=== PATIENT | female | born 1965 | race Caucasian/White ===

== ENCOUNTER 2016-12-29 07:47 | Emergency (ER) | payer BC ==
[~2016-12-29] VITALS: Ht 170.2 cm; Wt 101.1 kg
[~2016-12-29 07:47] MED LIST: AMLO5TAB2 PO; BUTA1CAP PO; ESCI20TA30 PO; OMEP20CA10 PO; PROP20TA7 PO
[2016-12-29 07:50] VITALS: Ht 170.2 cm; Wt 101.1 kg
--- OUTSIDE RECORDS SUMMARY | 2016-12-29 07:51 | XMS REPORT | Referral Summary ---
Author Author [facility] Organization [facility] Address Unknown Phone Unavailable Care Team Providers Care Lead Mason Tender Name Role Phone Norbert Skinner Primary Care Physician [phone] Encounter Date(s): 11/16/15 - 11/16/[address] [facility] [address] [place] [id number] Discharge Diagnosis: Major depressive disorder Discharge Diagnosis: Seasonal allergic rhinitis Discharge Disposition: 01-Home or Self Care Attending Physician: Norbert Skinner DO Admitting Physician: Norbert Skinner DO Vital Signs Most recent to 1 oldest [Reference Range]: Temperature Tympanic 36.5 degC [36.6-38.1 degC] *LOW* (11/16/15 1:08 PM) Peripheral Pulse 76 bpm Rate [60-100 bpm] (11/16/15 1:08 PM) Blood Pressure 131/78 mmHg [90-140/60-90 mmHg] (11/16/15 1:08 PM) Problem List Condition Effective Dates Status Health Status Informant Obesity(Confirmed) Active patient Tobacco Active patient user(Confirmed) Allergies, Adverse Reactions, Alerts No Known Medication Allergies Medications Lexapro 20 mg oral tablet 20 mg 1 tabs, Oral, Daily, # 30 tabs, 6 Refill(s), Pharmacy: [facility] [id number], 1 tabs Oral Daily Start Date: 10/05/15 Status: Ordered Norvasc 5 mg oral tablet 5 mg 1 tabs, Oral, Daily, # 30 tabs, 0 Refill(s), Pharmacy: [id number], 1 tabs Oral Daily Start Date: 10/26/15 Status: Ordered Results No data available for this section Immunizations Vaccine Date Refusal Reason influenza virus vaccine, inactivated 09/04/15 Procedures No data available for this section Social History Social History Type Response Smoking Status Current some day smoker; Type: Cigarettes; Number of years: 20 Assessment and Plan Extracted from: Title: Office Visit Note Author: Susanne Norbert TA Date: 11/16/15 Assessment/Plan HTN (hypertension) 1. Blood pressure is well controlled at this time. 2. Continue with low-salt diet. 3. Continue with weight loss effort. 4. Follow-up in 3 months for blood pressure management. Major depressive disorder 1. Continue with Lexapro daily. 2. Follow-up in 3 months for further management. Ordered: Office Visit Level 3 Est 88135 Seasonal allergic rhinitis 1. Consider the use of Flonase and nasal rinses twice a day until symptoms improve. 2. If no improvement then we may consider sending her to ENT specialist. Ordered: Office Visit Level 3 Est 69530
--- OUTSIDE RECORDS SUMMARY | 2016-12-29 07:51 | XMS REPORT | Referral Summary ---
Author Author [facility] Organization [facility], [facility] Address Unknown Phone Unavailable Care Team Providers Care Windows Admin Name Role Phone Norbert Skinner Primary Care Physician [phone] Encounter VC Date(s): 04/25/16 - 04/25/[address] [facility], [address] [place] [address] [place] Discharge Disposition: 01-Home or Self Care Attending Physician: Norbert Skinner DO Admitting Physician: Norbert Skinner DO Vital Signs Most recent to 1 oldest [Reference Range]: Temperature Tympanic 37.0 degC [36.6-38.1 degC] (04/25/16 11:08 AM) Peripheral Pulse 70 bpm Rate [60-100 bpm] (04/25/16 11:08 AM) Respiratory Rate 18 br/min [14-20 br/min] (04/25/16 11:08 AM) Blood Pressure 122/90 mmHg [90-140/60-90 mmHg] (04/25/16 11:08 AM) SpO2 98 % (04/25/16 11:08 AM) Problem List Condition Effective Dates Status Health Status Informant Obesity(Confirmed) Active patient Tobacco Active patient user(Confirmed) Allergies, Adverse Reactions, Alerts No Known Medication Allergies Medications amLODIPine 5 mg oral tablet See Instructions, TAKE 1 TABLET BY MOUTH EVERY DAY, # 30 tabs, 5 Refill(s), eRx : [facility] , TAKE 1 TABLET BY MOUTH EVERY DAY Start Date: 01/17/16 Status: Ordered ESCITALOPRAM 20MG TABLETS See Instructions, TAKE 1 TABLET BY MOUTH EVERY DAY, # 30 tabs, 2 Refill(s), eRx : [facility] , TAKE 1 TABLET BY MOUTH EVERY DAY Start Date: 04/24/16 Status: Ordered Fioricet with Codeine oral capsule 1 caps, Oral, q6hr, as needed for headache, # 30 caps, 0 Refill(s) Start Date: 04/25/16 Stop Date: 05/26/16 Status: Ordered Lexapro 20 mg oral tablet 20 mg 1 tabs, Oral, Daily, # 30 tabs, 6 Refill(s), Pharmacy: [facility] [id number], 1 tabs Oral Daily Start Date: 10/05/15 Status: Ordered propranolol 20 mg oral tablet 20 mg 1 tabs, Oral, BID, # 180 tabs, 0 Refill(s), Pharmacy: [facility] [id number], 1 tabs Oral BID Start Date: 04/25/16 Status: Ordered Results Chemistry Most recent to 1 oldest [Reference Range]: Estimated Creatinine 83.52 mL/min Clearance (04/25/16 11:09 AM) Immunizations Vaccine Date Refusal Reason influenza virus vaccine, inactivated 09/04/15 Procedures No data available for this section Social History Social History Type Response Smoking Status Former smoker; Type: Cigarettes; Number of years: 20 Assessment and Plan Extracted from: Title: Office Visit Note Author: Norbert Skinner DO Date: 04/25/16 Assessment/Plan Migraine 1. Her history and clinical finding concerning for worsening migraines. 2. Propranolol 20 mg twice a day. 3. Fioricet one tablet every 6 hours as needed for breakthrough migraines. 4. We will set her up for MRI of the head for further evaluation since she is waking up with the migraines and they seem intractable with worsening presentation as compared to her baseline. Ordered: Office Visit Level 4 Est 56171 Orders: butalbital/acetaminophen/caffeine/codeine, 1 caps, Oral, q6hr, as needed for headache, # 30 caps, 0 Refill(s) propranolol, 20 mg 1 tabs, Oral, BID, # 180 tabs, 0 Refill(s), Pharmacy: [facility] [id number], 1 tabs Oral BID
--- OUTSIDE RECORDS SUMMARY | 2016-12-29 07:51 | XMS REPORT | Referral Summary ---
Author Author [facility] Organization [facility] Address Unknown Phone Unavailable Care Team Providers Care Shock Absorber Installer Name Role Phone Norbert Skinner Primary Care Physician [phone] Encounter VC Date(s): 10/26/15 - 10/26/[address] [facility], Family [address] [place] [address]- Discharge Disposition: 01-Home or Self Care Attending Physician: Norbert Skinner DO Admitting Physician: Norbert Skinner DO Vital Signs Most recent to 1 oldest [Reference Range]: Temperature Tympanic 36.7 degC [36.6-38.1 degC] (10/26/15 9:08 AM) Peripheral Pulse 65 bpm Rate [60-100 bpm] (10/26/15 9:08 AM) Blood Pressure 142/95 mmHg [90-140/60-90 mmHg] *HI* (10/26/15 9:08 AM) SpO2 99 % (10/26/15 9:08 AM) Problem List Condition Effective Dates Status Health Status Informant Obesity(Confirmed) Active patient Tobacco Active patient user(Confirmed) Allergies, Adverse Reactions, Alerts No Known Medication Allergies Medications amoxicillin 875 mg oral tablet 875 mg 1 tabs, Oral, BID, X 10 days, # 20 tabs, 0 Refill(s), Pharmacy: [facility] [id number], 1 tabs Oral BID,x10 days Start Date: 10/26/15 Stop Date: 11/05/15 Status: Ordered Lexapro 20 mg oral tablet 20 mg 1 tabs, Oral, Daily, # 30 tabs, 6 Refill(s), Pharmacy: [facility] [id number], 1 tabs Oral Daily Start Date: 10/05/15 Status: Ordered Norvasc 5 mg oral tablet 5 mg 1 tabs, Oral, Daily, # 30 tabs, 0 Refill(s), Pharmacy: [facility] 95401, 1 tabs Oral Daily Start Date: 10/26/15 Status: Ordered predniSONE 20 mg oral tablet 20 mg 1 tabs, Oral, Daily, X 5 days, # 5 tabs, 0 Refill(s), Pharmacy: [facility] [id number], 1 tabs Oral Daily,x5 days Start Date: 10/26/15 Stop Date: 10/31/15 Status: Ordered Results No data available for this section Immunizations Vaccine Date Refusal Reason influenza virus vaccine, inactivated 09/04/15 Procedures No data available for this section Social History Social History Type Response Smoking Status Current some day smoker; Type: Cigarettes; Number of years: 20 Assessment and Plan Extracted from: Title: Office Visit Note Author: Norbert Skinner DO Date: 10/26/15 Assessment/Plan HTN (hypertension) 1. Blood pressure continues to be significantly elevated. 2. Low salt diet recommended. 3. Weight loss recommended. 4. Norvasc 5 mg daily. 5. Follow-up in one month for reevaluation. Ordered: amoxicillin, 875 mg 1 tabs, Oral, BID, X 10 days, # 20 tabs, 0 Refill(s), Pharmacy: [facility] [id number], 1 tabs Oral BID,x10 days predniSONE, 20 mg 1 tabs, Oral, Daily, X 5 days, # 5 tabs, 0 Refill(s), Pharmacy: [facility] [id number], 1 tabs Oral Daily,x5 days Office Visit Level 4 Est 15364 Rhinosinusitis 1. Clinical findings consistent with seasonal allergies. 2. Continue with nasal rinses. 3. Restart antihistamine one tablet daily. 4. Prednisone 20 mg daily for 5 days. 5. Antibiotic therapy was made available for [id number] approach. Indication for starting the antibiotic was discussed in detail with the patient , she voiced understanding. Ordered: amoxicillin, 875 mg 1 tabs, Oral, BID, X 10 days, # 20 tabs, 0 Refill(s), Pharmacy: [facility] [id number], 1 tabs Oral BID,x10 days predniSONE, 20 mg 1 tabs, Oral, Daily, X 5 days, # 5 tabs, 0 Refill(s), Pharmacy: [facility] 77015, 1 tabs Oral Daily,x5 days Office Visit Level 4 Est 13732 Orders: amLODIPine, 5 mg 1 tabs, Oral, Daily, # 30 tabs, 0 Refill(s), Pharmacy : [facility], 1 tabs Oral Daily
--- OUTSIDE RECORDS SUMMARY | 2016-12-29 07:51 | XMS REPORT | Referral Summary ---
Author Author [facility] Organization [facility] Address Unknown Phone Unavailable Care Team Providers Care Plaster Applicator Name Role Phone Norbert Skinner Primary Care Physician [phone] Encounter VC Date(s): 09/04/15 - 09/04/[address] [facility] [address] [place] [address] Discharge Diagnosis: Anxiety and depression Discharge Diagnosis: Adult general medical exam Discharge Disposition: 01-Home or Self Care Attending Physician: Norbert Skinner DO Admitting Physician: Norbert Skinner DO Vital Signs Most recent to 1 oldest [Reference Range]: Temperature Tympanic 36.4 degC [36.6-38.1 degC] *LOW* (09/04/15 8:01 AM) Peripheral Pulse 68 bpm Rate [60-100 bpm] (09/04/15 8:01 AM) Blood Pressure 130/82 mmHg [90-140/60-90 mmHg] (09/04/15 8:01 AM) Problem List Condition Effective Dates Status Health Status Informant Obesity(Confirmed) Active patient Tobacco Active patient user(Confirmed) Allergies, Adverse Reactions, Alerts No Known Medication Allergies Medications Lexapro 10 mg oral tablet 10 mg 1 tabs, Oral, Daily, # 30 tabs, 0 Refill(s), Pharmacy: [id number], 1 tabs Oral Daily Start Date: 09/04/15 Status: Ordered Results Hematology Most recent to 1 oldest [Reference Range]: WBC [4.8-10.8 7.5 10*3/uL 10*3/uL] (09/04/15 8:45 AM) RBC [4.00-5.20] 4.62 (09/04/15 8:45 AM) Hgb [12.0-16.0 14.6 gm/dL gm/dL] (09/04/15 8:45 AM) Hct [37.0-47.0 %] 43.0 % (09/04/15 8:45 AM) MCV [82.0-99.0 fL] 93.1 fL (09/04/15 8:45 AM) MCH [27.0-32.0 pg] 31.6 pg (09/04/15 8:45 AM) MCHC [32.0-36.0 34.0 gm/dL gm/dL] (09/04/15 8:45 AM) RDW [11.5-14.5 %] 13.4 % (09/04/15 8:45 AM) Platelet [150-400 316 10*3/uL 10*3/uL] (09/04/15 8:45 AM) MPV [8.8-14.8 fL] 11.1 fL (09/04/15 8:45 AM) Immature 0.1 % Granulocytes (09/04/15 8:45 AM) [0.0-1.0 %] Neutrophils [51-75 66 % %] (09/04/15 8:45 AM) Lymphocytes [20-46 24 % %] (09/04/15 8:45 AM) Monocytes [4-11 %] 8 % (09/04/15 8:45 AM) Eosinophils [0-4 %] 2 % (09/04/15 8:45 AM) Basophils [0-2 %] 0 % (09/04/15 8:45 AM) Neutro Absolute 4.92 10*3 [1.90-7.00 10*3] (09/04/15 8:45 AM) Lymph Absolute 1.80 10*3 [0.80-3.30 10*3] (09/04/15 8:45 AM) Floyd Absolute 0.62 10*3 [0.30-1.00 10*3] (09/04/15 8:45 AM) Eos Absolute 0.11 10*3 [0.00-0.50 10*3] (09/04/15 8:45 AM) Baso Absolute 0.02 10*3 [0.00-0.20 10*3] (09/04/15 8:45 AM) Chemistry Most recent to 1 oldest [Reference Range]: Sodium Lvl [135-144 140 mEq/L mEq/L] (09/04/15 8:45 AM) Potassium Lvl 5.1 mEq/L [3.5-5.2 mEq/L] (09/04/15 8:45 AM) Chloride [99-111 105 mEq/L mEq/L] (09/04/15 8:45 AM) CO2 [22-31 mEq/L] 27 mEq/L (09/04/15 8:45 AM) AGAP [3-20] 8 (09/04/15 8:45 AM) BUN [10-20 mg/dL] 15 mg/dL (09/04/15 8:45 AM) Glucose Lvl [70-99 95 mg/dL mg/dL] (09/04/15 8:45 AM) Creatinine Lvl 0.76 mg/dL [0.57-1.11 mg/dL] (09/04/15 8:45 AM) eGFR [>60 mL/min] >60 mL/min 1 (09/04/15:45 AM) Calcium Lvl 9.7 mg/dL [8.9-10.5 mg/dL] (09/04/15 8:45 AM) Albumin Lvl [3.5-5.0 4.0 gm/dL gm/dL] (09/04/15 8:45 AM) Total Protein 7.0 gm/dL [6.4-8.3 gm/dL] (09/04/15 8:45 AM) Globulin [1.8-4.0 3.0 gm/dL gm/dL] (09/04/15 8:45 AM) ALT [0-55 U/L] 8 U/L (09/04/15 8:45 AM) AST [5-34 U/L] 11 U/L (09/04/15 8:45 AM) Alk Phos [40-150 82 U/L U/L] (09/04/15 8:45 AM) Bili Total [0.2-1.2 0.8 mg/dL mg/dL] (09/04/15 8:45 AM) Chol [0-199 mg/dL] 202 mg/dL *HI* (09/04/15 8:45 AM) Trig [0-149 mg/dL] 120 mg/dL (09/04/15 8:45 AM) HDL [40-84 mg/dL] 40 mg/dL (09/04/15 8:45 AM) LDL [0-130 mg/dL] 138 mg/dL *HI* (09/04/15 8:45 AM) VLDL Cholesterol 24 mg/dL [0-28 mg/dL] (09/04/15 8:45 AM) Cardiac Risk 5.1 [0.0-5.0] *HI* (09/04/15 8:45 AM) TSH with Reflex Free 0.42 T4 [0.35-4.94] (09/04/15 8:45 AM) Hgb A1c [4.1-5.6 %] 5.3 % (09/04/15 8:45 AM) eAvg Glucose 105.4 mg/dL (09/04/15 8:45 AM) 1Result Comment: Multiply eGFR results by 1.21 for race. Immunizations Vaccine Date Refusal Reason influenza virus vaccine, inactivated 09/04/15 Procedures Procedure Date Related Diagnosis Body Site Collection of venous blood by venipuncture 09/04/15 Social History Social History Type Response Smoking Status Current some day smoker; Type: Cigarettes; Number of years: 20 Assessment and Plan Extracted from: Title: Office Visit Note Author: Norbert Skinner DO Date: 09/04/15 Assessment/Plan Adult general medical exam 1. This is a well-developed well-nourished 50-year- old female in relatively good health. 2. Screening labs ordered today, reports pending. 3. Mammogram ordered today. 4. Recommended scheduling a well woman exam. She has history of tubal ligation. 5. Flu vaccination given today. 6. She will be due for tetanus vaccination next year. 7. She will be due for colonoscopy next year. Ordered: CBC w/ Differential Comprehensive Metabolic Panel Hemoglobin A1c Lipid Panel Office Visit Level 4 Est 75894 TSH with Reflex Free T4 Anxiety and depression 1. We'll start her on Lexapro 10 mg daily. Adverse reaction of this medication discussed in detail with the patient, she voiced understanding. 2. Follow-up in 2-4 weeks for reevaluation,sooner if worsening symptoms. Ordered: CBC w/ Differential Comprehensive Metabolic Panel Hemoglobin A1c Office Visit Level 4 Est 19798 TSH with Reflex Free T4 Immunization due 1. Flu vaccination given today.
--- OUTSIDE RECORDS SUMMARY | 2016-12-29 07:51 | XMS REPORT | Referral Summary ---
Author Author [facility] Family [facility] Organization [facility] Address Unknown Phone Unavailable Care Team Providers Care Criminal Investigator Customs Name Role Phone Norbert Skinner Primary Care Physician [phone] Encounter VC Date(s): 10/05/15 - 10/05/[address] [facility], [address] [place] [address] Discharge Diagnosis: Major depressive disorder Discharge Diagnosis: Elevated blood pressure reading without diagnosis of hypertension Discharge Diagnosis: Tobacco user 09-SEP-2015 19:18:44<$> Discharge Disposition: 01-Home or Self Care Attending Physician: Norbert Skinner DO Admitting Physician: Norbert Skinner DO Vital Signs Most recent to 1 oldest [Reference Range]: Temperature Tympanic 36.5 degC [36.6-38.1 degC] *LOW* (10/05/15 8:16 AM) Peripheral Pulse 74 bpm Rate [60-100 bpm] (10/05/15 8:16 AM) Blood Pressure 150/92 mmHg [90-140/60-90 mmHg] *HI* (10/05/15 8:16 AM) Problem List Condition Effective Dates Status Health Status Informant Obesity(Confirmed) Active patient Tobacco Active patient user(Confirmed) Allergies, Adverse Reactions, Alerts No Known Medication Allergies Medications Lexapro 20 mg oral tablet 20 mg 1 tabs, Oral, Daily, # 30 tabs, 6 Refill(s), Pharmacy: [facility] [address]127, 1 tabs Oral Daily Start Date: 10/05/15 Status: Ordered Results No data available for this section Immunizations Vaccine Date Refusal Reason influenza virus vaccine, inactivated 09/04/15 Procedures No data available for this section Social History Social History Type Response Smoking Status Current some day smoker; Type: Cigarettes; Number of years: 20 Assessment and Plan Extracted from: Title: Well woman exam Author: Norbert Skinner DO Date: 10/05/15 Assessment/Plan Elevated blood pressure reading without diagnosis of hypertension 1. Recommended low-salt diet. 2. Daily exercise recommended. 3. Weight loss recommended. 4. Follow-up in a month for blood pressure check, if it continues to be elevated then we plan on starting her on the antihypertensive agent. Ordered: Periodic Comp Preventive Med 40 to 64 years Est 87204 Major depressive disorder 1. Increase Lexapro to 20 mg daily. 2. Follow-up in a month for reevaluation. Ordered: Periodic Comp Preventive Med 40 to 64 years Est 11832 Tobacco user 09-SEP-2015 19:18:44<$> 1. She was congratulated on her effort with tobacco cessation. Ordered: Periodic Comp Preventive Med 40 to 64 years Est 51818 Smoking and tobacco use cessation counseling visit 3 to 10 minutes 13573 Well woman exam with routine gynecological exam 1. This is a well-developed well-nourished 50-year-old female in relatively good health. 2. Lifestyle changes recommended. 3. Tobacco cessation recommended. 4. Weight loss recommended. 5. Follow-up yearly for well woman exam. 6. Labs reviewed with the patient, we discussed hyperlipidemia. 7. Her mammogram was negative. Ordered: Periodic Comp Preventive Med 40 to 64 years Est 60111 Orders: escitalopram, 20 mg 1 tabs, Oral, Daily, # 30 tabs, 6 Refill(s), Pharmacy: [facility] 74050, 1 tabs Oral Daily
--- OUTSIDE RECORDS SUMMARY | 2016-12-29 07:51 | XMS REPORT | Referral Summary ---
Author Author [facility] Organization [facility] Address Unknown Phone Unavailable Care Team Providers Care Television Repairer Name Role Phone Norbert Skinner Primary Care Physician [phone] Encounter VC Date(s): 02/14/16 - 02/14/[address] [facility], [address] [place] [address] Discharge Disposition: 01-Home or Self Care Attending Physician: Norbert Skinner DO Admitting Physician: Norbert Skinner DO Vital Signs Most recent to 1 oldest [Reference Range]: Temperature Tympanic 36.7 degC [36.6-38.1 degC] (02/14/16 1:42 PM) Apical Heart Rate 79 bpm [60-100 bpm] (02/14/16 1:42 PM) Blood Pressure 110/60 mmHg [90-140/60-90 mmHg] (02/14/16 1:42 PM) SpO2 97 % (02/14/16 1:42 PM) Problem List Condition Effective Dates Status Health Status Informant Obesity(Confirmed) Active patient Tobacco Active patient user(Confirmed) Allergies, Adverse Reactions, Alerts No Known Medication Allergies Medications amLODIPine 5 mg oral tablet See Instructions, TAKE 1 TABLET BY MOUTH EVERY DAY, # 30 tabs, 5 Refill(s), eRx : [facility] 18705, TAKE 1 TABLET BY MOUTH EVERY DAY Start Date: 01/17/16 Status: Ordered Lexapro 20 mg oral tablet 20 mg 1 tabs, Oral, Daily, # 30 tabs, 6 Refill(s), Pharmacy: [facility] 17561, 1 tabs Oral Daily Start Date: 10/05/15 Status: Ordered Results No data available for this section Immunizations Vaccine Date Refusal Reason influenza virus vaccine, inactivated 09/04/15 Procedures No data available for this section Social History Social History Type Response Smoking Status Former smoker; Type: Cigarettes; Number of years: 20 Assessment and Plan No data available for this section
--- OUTSIDE RECORDS SUMMARY | 2016-12-29 07:51 | XMS REPORT | Referral Summary ---
Author Author [facility] Organization [facility] Address Unknown Phone Unavailable Care Team Providers Care Rodding Anode Worker Name Role Phone Norbert Skinner Primary Care Physician [phone] Encounter VC Date(s): 08/15/16 - 08/15/[address] [facility], Family [address] [place] [address]- Discharge Diagnosis: Depression Discharge Diagnosis: HTN (hypertension) Discharge Disposition: 01-Home or Self Care Attending Physician: Norbert Skinner DO Admitting Physician: Norbert Skinner DO Vital Signs Most recent to 1 oldest [Reference Range]: Temperature Tympanic 36.8 degC [36.6-38.1 degC] (08/15/16 11:00 AM) Peripheral Pulse 55 bpm Rate [60-100 bpm] *LOW* (08/15/16 11:00 AM) Respiratory Rate 16 br/min [14-20 br/min] (08/15/16 11:00 AM) Blood Pressure 122/78 mmHg [90-140/60-90 mmHg] (08/15/16 11:00 AM) SpO2 94 % (08/15/16 11:00 AM) Problem List Condition Effective Dates Status Health Status Informant Obesity(Confirmed) Active patient Tobacco Active patient user(Confirmed) Allergies, Adverse Reactions, Alerts No Known Medication Allergies Medications amLODIPine 5 mg oral tablet See Instructions, TAKE 1 TABLET BY MOUTH EVERY DAY, # 30 tabs, 2 Refill(s), eRx : [facility] , TAKE 1 TABLET BY MOUTH EVERY DAY Start Date: 08/04/16 Status: Ordered escitalopram 20 mg oral tablet See Instructions, TAKE 1 TABLET BY MOUTH EVERY DAY, # 30 tabs, 2 Refill(s), eRx : [facility] , TAKE 1 TABLET BY MOUTH EVERY DAY Start Date: 08/04/16 Status: Ordered propranolol 20 mg oral tablet See Instructions, TAKE 1 TABLET BY MOUTH TWICE DAILY, # 180 tabs, 2 Refill(s), eRx: [facility] 60125, TAKE 1 TABLET BY MOUTH TWICE DAILY Start Date: 08/09/16 Status: Ordered Results No data available for this section Immunizations Vaccine Date Refusal Reason influenza virus vaccine, inactivated 08/15/16 influenza virus vaccine, inactivated 09/04/15 Procedures No data available for this section Social History Social History Type Response Smoking Status Former smoker; Type: Cigarettes; Number of years: 20 Assessment and Plan Extracted from: Title: Office Visit Note Author: Norbert Skinner DO Date: 08/15/16 Assessment/Plan 1.HTN (hypertension) 1. Blood pressure is controlled at this time. 2. Continue with low salt diet. 3. Continue with current medications. 4. Follow up in 6 months for reevaluation Ordered: Office Visit Level 4 Est 90815 2.Depression 1. Continue with Lexapro 20 mg daily. 2. Follow up in 6 months for reevaluation, earlier if any new concerns. 3. We may consider counseling. Flu vaccine need 1. Flu shot given today. Ordered: Office Visit Level 4 Est 37284
--- NOTE | 2016-12-29 07:58 | ERPDOC ---
Departure Disposition Decision Date: Dec 29, 2016 Disposition Decision Time: 09:47 Disposition: 01 DISCHARGED HOME, SELF-CARE Impression Impression Impression: Primary Impression: Fracture of navicular bone of left foot Encounter type: initial encounter Fracture type: closed Fracture alignment : nondisplaced Qualified Codes: S92.255A - Nondisplaced fracture of navicular [scaphoid] of left foot, initial encounter for closed fracture Severity: Moderate Condition: Stable Seen By: Physician only Referrals: SEBASTIÁN LUTHER Call for follow-up appointment this week Patient Instructions: Foot Fracture in Adults (ED) Problems/Meds/Labs Reviewed?: Yes Medications reviewed and manag: Yes Additional Instructions: Keep splint on, nonweightbearing and use crutches follow-up with orthopedist Departure Forms: Return to Work/School Permit Return to Work/School Date: Dec 31, 2016 Follow up care ordered?: Yes Mental Status: Alert, Oriented Scripts Tramadol HCl (Tramadol HCl) 50 Mg Tablet 50 MG PO QID Y for PAIN, #20 TAB Take 1 tablet, by mouth, 4 times a day. Prov: CARMELITA ALDRICH MD 12/29/16 HPI General Chief Complaint: Lower Extremity Injury Stated Complaint: FALL/ L ANKLE PAIN Time Seen by Provider: 07:58 Source: patient Exam Limitations: no limitations HPI Foot/Ankle Initial Comments Patient is a 51-year-old female presents emergency room for evaluation of left foot pain. Patient fell down some stairs this morning approximately 5 AM, had immediate pain and swelling to the medial foot. Patient no medications taken at home decided present to the ER for evaluation. Occurred At: home Onset: Rapid Duration: 1-3 hrs Pain Scale: Now & Worst: 8/10 Location: left: foot Method of Injury: fell Allergies: Coded Allergies: No Known Drug Allergies (Verified Allergy, Unknown, 12/29/16) Past History Past Medical History GI: GERD Neurological: migraines Surgical History Denies Surgeries Vaccines Hx Tetanus, Diptheria, Pertuss: Yes (2004) Social History Substance Use Type: does not use Alcohol Intake: none Review of Systems Constitutional Constitutional: DENIES: chills, fever ENMT Sinuses: DENIES: congestion Cardiovascular Cardiac: DENIES: chest pain Pulmonary Respiratory: DENIES: cough GI Upper Abdomen: DENIES: pain Lower Abdomen: DENIES: pain Musculoskeletal General: see HPI Integumentary Skin: see HPI Endocrine Endocrine: DENIES: heat/cold intolerance Hematologic/Lymphatic Hematologic/Lymphatic: DENIES: anemia Exam General General Nourishment: well nourished, well developed General Body Habitus: well groomed Vital Signs: RN Vital Signs have been reviewed: Yes Height (Feet): 5 Height (Inches): 7.00 Fastrak Foot/Ankle Foot/Ankle : Leg: Left Leg: NOT FOUND: contusion, discoloration, numbness, swelling, tender, weakness Ankle: ecchymosis, swelling, tender mid foot, NOT FOUND: achilles tendon insertion, decreased ROM, deformity, numbness, tender lat. foot, tender lat. malleolus, tender med. malleolus, weakness Foot: discoloration, swelling, NOT FOUND: deformity, tender 1st MTP joint, tender plantar fascia Toes: cap refill <2 sec ea toe, NOT FOUND: decreased ROM, nail avulsion, subungual hematoma Posterior Tibial Pulse: 3+ Dorsalis Pedis Pulse: 3+ Neurologic RN Documented GCS Eye Opening: Verbal: Motor: Total: Differential Diagnoses Considering: Contusion, Fracture, Sprain, Strain, Stress Fracture Progress Results/Orders Orders Procedure Category Date Status Time Ibuprofen (Motrin) PHA 12/29/16 Complete 08:00 Foot Left 3 Views RAD 12/29/16 Resulted 08:00 Icepack EDM 12/29/16 Transmitted 08:00 Hand-Made Splint EDM 12/29/16 Transmitted 09:49 Crutches EDM 12/29/16 Transmitted 09:49 Medications Current ED Medications Ibuprofen (Motrin) 800 mg O ONCE PO Last administered on 12/29/16t 08:06; Start 12/29/16 at 08:00; Stop 12/29/16 at 08:01; Status DC Progress Progress Discussed with carla Vasques with [facility], pain control, have patient follow-up in the office nonweightbearing Xray Xray : Xray: Foot L Interpretation: Abnormal, Discussed w/ Radiologist (navicular fracture) CARMELITA ALDRICH MD Dec 29, 2016 07:58
--- NOTE | 2016-12-29 07:59 | NUR ---
PROVIDER DR ALDRICH TO SEE PT
[2016-12-29] MEDS ORDERED: IBUPROFEN 800 MG TABLET PO ONE (08:00)
--- NOTE | 2016-12-29 08:08 | NUR ---
RADIOLOGY PT TO RADIOLOGY PER WC
--- NOTE | 2016-12-29 08:41 | NUR ---
RADIOLOGY PT FROM RADIOLOGY PER WC
--- NOTE | 2016-12-29 09:01 | DI ---
EXAM: FOOT LEFT 3 VIEWS LOCATION OF DICTATION: [facility] HISTORY: ITS.REASON: fall left medial foot pain/swelling base 1st metatarsal COMPARISON: No prior studies available for comparison. FINDINGS: There is normal alignment of the hindfoot, midfoot, and forefoot joints without dislocation or subluxation. There is some cortical irregularity and adjacent soft tissue thickening involving the medial aspect of the navicular bone. The findings may reflect an unfused ossicle versus an acute fracture and clinical correlation is recommended. Normal osseous mineralization is demonstrated. Mild plantar calcaneal spurring is noted. IMPRESSION: 1. Cortical irregularity and adjacent soft tissues thickening about the medial aspect of the navicular bone which may be secondary to an unfused ossicle and nonspecific soft tissue swelling versus acute navicular bone fracture and clinical correlation with area of point tenderness is recommended. A follow-up x-ray could be obtained to further evaluate. .
--- NOTE | 2016-12-29 09:40 | NUR ---
PROVIDER DR. ALDRICH AT BEDSIDE FOR SPLINT PLACEMENT.
[2016-12-29] MEDS ORDERED: TRAM50TA4 PO (09:47)
[2016-12-29 10:30] VITALS: BP 141/70; PULSE 68; RESP 16; TEMP 97.9; O2SAT 96
--- NOTE | 2016-12-29 10:31 | NUR ---
DISMISSAL DISMISSAL INSTRUCTIONS WITH RX X1 AND WORK NOTE. NO FURTHER QUESTIONS AT THIS TIME. PT LEFT DEPARTMENT [facility] ON CRUTCHES WITH FAMILY
== END 2016-12-29 10:31 | disposition home or self-care (01) ==
LOC: ED 07:47
DX: S92.255A Nondisplaced fracture of navicular [scaphoid] of left foot, initial encounter for closed fracture (principal); W10.8XXA Fall (on) (from) other stairs and steps, initial encounter; Y93.9 Activity, unspecified; Y92.008 Other place in unspecified non-institutional (private) residence as the place of occurrence of the external cause; Y99.8 Other external cause status

== ENCOUNTER → 2017-01-06 | Outpatient (CLI) | payer BC ==
[~2017-01-06] MED LIST changes: -BUTA1CAP PO; +TRAM50TA4 PO
--- NOTE | 2017-01-06 10:48 | DI ---
Indication: ITS.REASON: S92.252A Displaced fracture of navicular [scaphoid] of left foot, PROCEDURE: CT LOWER EXTREMITY LT W/O CONT: Encounter: Initial Comparison: Left foot radiographs dated December 29, 2016 Technique: Axial noncontrast CT imaging through the left foot was performed with coronal and sagittal two-dimensional reformats. Three-dimensional surface shaded volume rendered imaging was also created and reviewed. Automated Exposure Control and Iterative Reconstruction dose reducing techniques were utilized. Findings: The findings on recent radiograph are due to a type II accessory navicular bone. There is some degenerative change at the navicular with osteophyte formation medially. There is however a small area of lucency through the superior aspect of the diverticular bone seen on the sagittal plane images which appears to represent a tiny avulsion fracture. This is best seen on sagittal image #25 and coronal image #39. No additional acute fracture. The joint spaces appear normal. Soft tissues are grossly normal. There is mild subcutaneous edema in the tissues of the posterior foot. The flexor and extensor tendons are grossly intact. Muscular attenuation is normal. No fluid collections seen. Moderate sized inferior calcaneal spur. Impression: Tiny avulsion fracture from the superior aspect of the navicular. Type II accessory navicular bone also present. .
== END ==
LOC: IMA 09:59
PROVIDERS: ATTEND Physician Assistant Surgical
DX: S92.252A Displaced fracture of navicular [scaphoid] of left foot, initial encounter for closed fracture (principal); Q66.89 Other specified congenital deformities of feet; W10.8XXA Fall (on) (from) other stairs and steps, initial encounter; Y93.9 Activity, unspecified; Y92.009 Unspecified place in unspecified non-institutional (private) residence as the place of occurrence of the external cause; Y99.9 Unspecified external cause status